=== PATIENT | female | born 1980 | race Hispanic/Latino ===

== ENCOUNTER 2018-11-29 08:23 | Day surgery (SDC) | payer BC ==
[2018-11-26 09:45] LABS: Absolute Monocytes 0.4 K/uL (0.1-1.3); Absolute Neutrophil 4.1 K/uL (1.8-8.0); Basophils % 0.6 % (0-1.3); Eosinophils % 2.2 % (0-4.4); Hematocrit 38.6 % (36.0-45.0); Lymphocytes % 18.4 % (15.3-44.8); MPV 8.2 fL (7.6-11.3); RBC Red Blood Cell Count 4.26 M/uL (3.86-4.86)
[2018-11-26 09:55] LABS: BUN Blood Urea Nitrogen 11 mg/dL (7-18); Bicarbonate 26 mmol/L (21-32); Glucose Level 94 mg/dL (74-106); Potassium 3.9 mmol/L (3.5-5.1); Sodium Level 139 mmol/L (136-145)
--- NOTE | 2018-11-26 10:09 | RAD REPORT ---
EXAM DESCRIPTION: RAD - Chest Single View - 11/26/2018 9:57 am CLINICAL HISTORY: preop Chest pain. COMPARISON: Abdomen 1 View (KUB) dated 06/05/2018 FINDINGS: Portable technique limits examination quality. The lungs are grossly clear. The heart is normal in size. No displaced fractures. IMPRESSION: No acute intrathoracic process suspected.
--- NOTE | 2018-11-26 13:42 | EKG ---
Test Date: 2018-11-26 Test Time: 09:40:39 Contract Agent: SHADY MEASUREMENT RESULTS: Intervals: Rate: 64 CO: 124 QRSD: 80 QT: 386 QTc: 398 [place]: P: 68 CO: 124 QRS: 70 T: 59 INTERPRETIVE STATEMENTS: Normal sinus rhythm Normal ECG No previous ECG available for comparison Electronically Signed On 11-26-18 13:38:41 POSTPARTUM RN by Bryan Jones
--- OUTSIDE RECORDS SUMMARY | 2018-11-29 08:32 | XMS REPORT ---
:1980 Author Organization e[employer] Care Team Providers Name Role Phone Thania Dietz Provider Role Unavailable Allergies No Known Allergies Problems Problem Type Condition Code Onset Dates Condition Status Problem History of ovarian cyst Z87.42 Active Problem Unspecified abdominal pain R10.9 Active Problem Other chronic pain G89.29 Active Problem Microscopic hematuria R31.29 Active Problem Irritable bowel K58.9 Active Medications No Known Medications Results No Known Results Summary Purpose eClinicalWorks Submission
--- OUTSIDE RECORDS SUMMARY | 2018-11-29 08:32 | XMS REPORT ---
:1980 Author Organization [employer] Care Team Providers Name Role Phone Vogt, Na Provider Role Unavailable Allergies, Adverse Reactions, Alerts Substance Reaction Event Type N.K.D.A. Info Not Available Non Drug Allergy Problems Problem Type Condition Code Onset Dates Condition Status Problem Microscopic hematuria R31.29 Active Problem Irritable bowel K58.9 Active Assessment Fibromyalgia M79.7 Active Assessment Gastroesophageal reflux disease K21.9 Active without esophagitis Assessment Dysfunctional gallbladder K82.8 Active Assessment Abdominal pain, right lateral R10.9 Active Problem Gastroesophageal reflux disease K21.9 Active without esophagitis Problem Paresthesia of skin R20.2 Active Problem Fibromyalgia M79.7 Active Problem Other chronic pain G89.29 Active Problem History of ovarian cyst Z87.42 Active Problem Pain in thoracic spine M54.6 Active Problem Unspecified abdominal pain R10.9 Active Medications Medication Code Code Instructions Start End Status Dosage System Date Date Dexilant [facility] 96616503068 30 MG Orally Oct 02, Active 1 capsule Once a day 2018 [facility] [address] - Orally Active not defined Fluconazole ND 17983994804 150 MG Orally May 23, Active 1 tablet one tab a week 2018 today and may repeat one tab in 1 week if no improvement Tamsulosin HCl ND 27910707416 0.4 MG Orally Active 1 capsule Once a day Results No Known Results Summary Purpose eClinicalWorks Submission
--- OUTSIDE RECORDS SUMMARY | 2018-11-29 08:32 | XMS REPORT ---
:1980 Author Organization [employer]Works Care Team Providers Name Role Phone Thania Dietz Provider Role Unavailable Allergies, Adverse Reactions, Alerts Substance Reaction Event Type N.K.D.A. Info Not Available Non Drug Allergy Problems Problem Type Condition Code Onset Dates Condition Status Assessment Flank pain R10.9 Active Problem History of ovarian cyst Z87.42 Active Problem Unspecified abdominal pain R10.9 Active Problem Other chronic pain G89.29 Active Assessment Microscopic hematuria R31.29 Active Problem Microscopic hematuria R31.29 Active Problem Irritable bowel K58.9 Active Medications Medication Code Code Instructions Start End Status Dosage System Date Date Tamsulosin HCl ND 29526094149 0.4 MG Orally Jun 01, Jul 01, Active 1 capsule Once a day 2017 2018 [facility] [address]42[address] - Orally Active not defined Fluconazole ND 11028316051 150 MG Orally May 23, Active 1 tablet one tab a week 2018 today and may repeat one tab in 1 week if no improvement Results Name Result Date Reference Range Unit Abnormality Flag URINALYSIS AUTO W/O SCOPE (09833) ----NIT neg [id number] ----URO 0.2 20180601 ----PROTEIN neg 20180601 ----pH 7.0 20180601 ----BLO 1+ 20180601 ----GLUCOSE neg [id number] ----AJAY neg [id number] ----BILIRUBIN neg [id number] ----KETONES neg [id number] ----SPECIFIC GRAVITY 1.025 20180601 PVR ----PVR 31 [id number] Summary Purpose eClinicalWorks Submission
--- OUTSIDE RECORDS SUMMARY | 2018-11-29 08:32 | XMS REPORT ---
:1980 Author Organization [facility] Address [address] [place] [address] [address] Care Team Providers Name Role Phone Unavailable Unavailable Unavailable Payers Payer Name Policy Type Policy Number Effective Date Expiration Date Problems This patient has no known problems. Allergies, Adverse Reactions, Alerts Allergy Allergy Status Severity Reaction(s) Onset Inactive Treating Comments Name Type Date Date Clinician No Known DA Active U 2010-09 Allergies -25 00:00:0 0 Medications This patient has no known medications.
--- OUTSIDE RECORDS SUMMARY | 2018-11-29 08:32 | XMS REPORT ---
:1980 Author Organization [employer]Works Care Team Providers Name Role Phone Vogt, Na Provider Role Unavailable Allergies, Adverse Reactions, Alerts Substance Reaction Event Type N.K.D.A. Info Not Available Non Drug Allergy Problems Problem Type Condition Code Onset Dates Condition Status Assessment History of ovarian cyst Z87.42 Active Assessment Unspecified abdominal pain R10.9 Active Assessment Microscopic hematuria R31.29 Active Assessment Irritable bowel K58.9 Active Assessment Vaginal yeast infection B37.3 Active Problem History of ovarian cyst Z87.42 Active Problem Unspecified abdominal pain R10.9 Active Problem Other chronic pain G89.29 Active Assessment Other chronic pain G89.29 Active Problem Microscopic hematuria R31.29 Active Problem Irritable bowel K58.9 Active Medications Medication Code Code Instructions Start End Status Dosage System Date Date Fluconazole [facility] 37278137316 150 MG Orally May 23, Active 1 tablet today one tab a week 2018 and may repeat one tab in 1 week if no improvement [facility] [address] - Orally Active not defined Results Name Result Date Reference Range Unit Abnormality Flag COMPREHENSIVE METABOLIC PANEL(CMP) ----ALBUMIN/GLOBULI 1.7 20180522 1.0-2.5 (calc) N N RATIO ----GLOBULIN 2.5 20180522 1.9-3.7 g/dL N (calc) ----ALKALINE 58 20180522 33-115 U/L N PHOSPHATASE ----BILIRUBIN, 0.6 20180522 0.2-1.2 mg/dL N TOTAL ----CHLORIDE 105 20180522 98-110 mmol/L N ----ALT 11 20180522 6-29 U/L N ----POTASSIUM 4.3 20180522 3.5-5.3 mmol/L N ----AST 13 20180522 10-30 U/L N ----SODIUM 140 20180522 135-146 mmol/L N ----BUN/CREATININE NOT APPLICABLE 20180522 6-22 (calc) RATIO ----eGFR 135 20180522 > OR=60 mL/min/1.[address] ----CALCIUM 9.1 20180522 8.6-10.2 mg/dL N ----CARBON DIOXIDE 27 20180522 20-32 mmol/L N ----ALBUMIN 4.3 20180522 3.6-5.1 g/dL N ----PROTEIN, TOTAL 6.8 20180522 6.1-8.1 g/dL N ----GLUCOSE 90 20180522 65-99 mg/dL N ----UREA NITROGEN 9 20180522 7-25 mg/dL N (BUN) ----CREATININE 0.57 20180522 0.50-1.10 mg/dL N ----eGFR NON-AFR. 117 20180522 > OR=60 mL/min/1.7 [address] [place] [address] CBC (H/H, RBC, INDICES, WBC, PLT) ----MCHC 34.2 20180522 32.0-36.0 g/dL N ----MCH 30.9 [id number] 27.0-33.0 pg N ----PLATELET COUNT 278 20180522 140-400 Thousand/u N L ----MPV 10.1 [id number] 7.5-12.5 fL N ----RDW 12.3 20180522 11.0-15.0 % N ----HEMATOCRIT 38.9 20180522 35.0-45.0 % N ----MCV 90.5 20180522 80.0-100.0 fL N ----RED BLOOD CELL 4.30 30457411 3.80-5.10 Million/uL N COUNT ----HEMOGLOBIN 13.3 27699650 11.7-15.5 g/dL N ----WHITE BLOOD 6.6 92498353 3.8-10.8 Thousand/u N CELL COUNT L Summary Purpose eClinicalWorks Submission
--- OUTSIDE RECORDS SUMMARY | 2018-11-29 08:32 | XMS REPORT ---
[...] Status Dosage System Date Date Tamsulosin HCl [facility] 56514954158 0.4 MG Orally Active 1 capsule Once a day [facility] [address] - Orally Active not defined Fluconazole [facility] 08960584391 150 MG Orally May 23, Active 1 tablet one tab a week 2018 today and may repeat one tab in 1 week if no improvement Results No Known Results Summary Purpose eClinicalWorks Submission
--- OUTSIDE RECORDS SUMMARY | 2018-11-29 08:32 | XMS REPORT ---
:1980 Author Organization eClinicalWorks Care Team Providers Name Role Phone Vogt, Na Provider Role Unavailable Allergies, Adverse Reactions, Alerts Substance Reaction Event Type N.K.D.A. Info Not Available Non Drug Allergy Problems Problem Type Condition Code Onset Dates Condition Status Assessment Other chronic pain G89.29 Active Assessment Arthralgia, unspecified joint M25.50 Active Problem Paresthesia of skin R20.2 Active Problem Microscopic hematuria R31.29 Active Problem Pain in thoracic spine M54.6 Active Problem Other chronic pain G89.29 Active Problem Irritable bowel K58.9 Active Problem History of ovarian cyst Z87.42 Active Problem Unspecified abdominal pain R10.9 Active Assessment Irritable bowel K58.9 Active Assessment Dermatitis L30.9 Active Assessment Anesthesia of skin R20.0 Active Assessment Influenza vaccination administered Z23 Active at current visit Assessment Paresthesia of skin R20.2 Active Assessment Low back pain M54.5 Active Assessment Pain in thoracic spine M54.6 Active Medications Medication Code Code Instructions Start End Status Dosage System Date Date Fluocinonide ND 81955858121 0.05 % Jul 04Jun Active as directed Externally 2017 24, twice a day 2017 Tamsulosin HCl ND 38201259703 0.4 MG Orally Active 1 capsule Once a day Fluconazole ND 22237654510 150 MG Orally May 23, Active 1 tablet one tab a week 2018 today and may repeat one tab in 1 week if no improvement [facility] [address] - Orally Active not defined Results No Known Results Immunizations Vaccine Administration Date Afluria Jul 02, 2018 Summary Purpose eClinicalWorks Submission
--- OUTSIDE RECORDS SUMMARY | 2018-11-29 08:32 | XMS REPORT ---
:1980 Author Organization eClinicalWorks Care Team Providers Name Role Phone Vogt, Na Provider Role Unavailable Allergies No Known Allergies [...]
--- OUTSIDE RECORDS SUMMARY | 2018-11-29 08:32 | XMS REPORT ---
:1980 Author Organization eClinicalWorks Care Team Providers Name Role Phone Vogt, Na Provider Role Unavailable Allergies No Known Allergies Problems Problem Type Condition Code Onset Dates Condition Status Problem History of ovarian cyst Z87.42 Active Problem Unspecified abdominal pain R10.9 Active Problem Other chronic pain G89.29 Active Assessment Vaginal yeast infection B37.3 Active Problem Microscopic hematuria R31.29 Active Problem Irritable bowel K58.9 Active Medications Medication Code Code Instructions Start End Status Dosage System Date Date Fluconazole [facility] 56940693904 150 MG Orally May 23, Active 1 tablet today one tab a week 2017 and may repeat one tab in 1 week if no improvement Results No Known Results Summary Purpose eClinicalWorks Submission
--- OUTSIDE RECORDS SUMMARY | 2018-11-29 08:33 | XMS REPORT ---
:1980 Author Organization eClinicalWorks Care Team Providers Name Role Phone Feliz Carroll Provider Role Unavailable Allergies, Adverse Reactions, Alerts Substance Reaction Event Type N.K.D.A. Info Not Available Non Drug Allergy Problems Problem Type Condition Code Onset Dates Condition Status Problem Microscopic hematuria R31.29 Active Problem Irritable bowel K58.9 Active Assessment Calculus of gallbladder without K80.20 Active cholecystitis without obstruction Problem Gastroesophageal reflux disease K21.9 Active without esophagitis Problem Paresthesia of skin R20.2 Active Problem Fibromyalgia M79.7 Active Problem Other chronic pain G89.29 Active Problem History of ovarian cyst Z87.42 Active Problem Pain in thoracic spine M54.6 Active Problem Unspecified abdominal pain R10.9 Active Medications Medication Code Code Instructions Start End Status Dosage System Date Date [facility] [address] - Orally Active not defined Tamsulosin HCl ND 83425304829 0.4 MG Orally Active 1 capsule Once a day Fluconazole ND 21470910757 150 MG Orally May 23, Active 1 tablet one tab a week 2018 today and may repeat one tab in 1 week if no improvement Dexilant ND 56811195671 30 MG Orally Oct 02, Active 1 capsule Once a day 2019 Results No Known Results Summary Purpose eClinicalWorks Submission
--- OUTSIDE RECORDS SUMMARY | 2018-11-29 08:33 | XMS REPORT ---
:1980 Author Organization eClinicalWorks Care Team Providers Name Role Phone Feliz Carroll Provider Role Unavailable Allergies No Known Allergies Problems Problem Type Condition Code Onset Dates Condition Status Problem Microscopic hematuria R31.29 Active Problem Irritable bowel K58.9 Active Problem Gastroesophageal reflux disease K21.9 Active without esophagitis Problem Paresthesia of skin R20.2 Active Problem Fibromyalgia M79.7 Active Problem Other chronic pain G89.29 Active Problem History of ovarian cyst Z87.42 Active Problem Pain in thoracic spine M54.6 Active Problem Unspecified abdominal pain R10.9 Active Medications No Known Medications Results No Known Results Summary Purpose eClinicalWorks Submission
--- OUTSIDE RECORDS SUMMARY | 2018-11-29 08:33 | XMS REPORT ---
:1980 Author Organization eClinicalWorks Care Team Providers Name Role Phone Feliz Carroll Provider Role Unavailable Allergies, Adverse Reactions, Alerts Substance Reaction Event Type N.K.D.A. Info Not Available Non Drug Allergy Problems Problem Type Condition Code Onset Dates Condition Status Problem Microscopic hematuria R31.29 Active Problem Irritable bowel K58.9 Active Assessment Biliary dyskinesia K82.8 Active Problem Gastroesophageal reflux disease K21.9 Active without esophagitis Problem Paresthesia of skin R20.2 Active Problem Fibromyalgia M79.7 Active Problem Other chronic pain G89.29 Active Problem History of ovarian cyst Z87.42 Active Problem Pain in thoracic spine M54.6 Active Problem Unspecified abdominal pain R10.9 Active Medications Medication Code Code Instructions Start End Status Dosage System Date Date [facility] [address] - Orally Active not defined Fluconazole ND 03127063216 150 MG Orally May 23, Active 1 tablet one tab a week 2018 today and may repeat one tab in 1 week if no improvement Tamsulosin HCl [facility] 47977132078 0.4 MG Orally Active 1 capsule Once a day Dexilant [facility] 63504340058 30 MG Orally Oct 02, Active 1 capsule Once a day 2019 Results No Known Results Summary Purpose eClinicalWorks Submission
[2018-11-29 08:51] LABS: Specific Gravity >= 1.030 (1.005-1.030)
[2018-11-29] MEDS ORDERED: Ringers Lactate 1,000 ML IV ONE (08:53)
[2018-11-29] MEDS ORDERED: DEXAMETHASONE 4 MG/ML VIAL ONE (09:21)
[2018-11-29] MEDS ORDERED: LIDOCAINE 2% MPF 5 ML VIAL ONE (09:21)
[2018-11-29] MEDS ORDERED: PROPOFOL 200 MG/20 ML VIAL IV ONE (09:21)
[2018-11-29] MEDS ORDERED: FENTANYL CITR 100 MCG/2 ML ONE (09:21)
[2018-11-29] MEDS ORDERED: ROCURONIUM 50 MG/5 ML VIAL IV ONE (09:21)
[2018-11-29] MEDS ORDERED: MIDAZOLAM HCL 2 MG/2 ML INJ ONE (09:21)
[2018-11-29] MEDS ORDERED: BUPIVACAINE 0.25% PF 10 ML VIAL ONE (09:47)
[2018-11-29] MEDS: CEFOXITIN/SWI 1gm 1 GM/10 ML SYR ONE ×2 (09:51→09:55)
[2018-11-29] MEDS ORDERED: KETOROLAC 30 MG/ML INJ ONE (10:14)
--- NOTE | 2018-11-29 10:30 | P.OP ---
Wax Engraver: VIRA HOLLINGSWORTH Preoperative diagnosis: Biliary Dyskinesia / Chronic Cholecystitis Postoperative diagnosis: Biliary Dyskinesia / Chronic Cholecystitis Primary procedure: Laparoscopic Cholecystectomy Anesthesia: GETA + Local Estimated blood loss: <10cc Specimen: Gallbladder Findings: Floppy, Bluish Gallbladder Complications: None Transferred to: Recovery Room Condition: Good
[2018-11-29] MEDS ORDERED: GLYCOPYRROLATE 0.2 MG/ML SYR ONE (10:42)
[2018-11-29] MEDS ORDERED: NEOSTIGMINE 1 MG/ML -10 ML VIAL ONE (10:42)
[2018-11-29] MEDS: HYDROMORPHONE HCL 2 MG/ML inj ONE ×2 (11:04→11:09)
[2018-11-29] MEDS ORDERED: HYDROCODONE/APAP 5/325 MG TAB ONE (12:09)
--- NOTE | 2018-11-29 22:51 | OP ---
Date of Procedure: 11/29/2018 Surgeon: Feliz Carroll MD, Safety And Health Manager: Merle Quarles. Preoperative Diagnosis: Biliary dyskinesia/chronic cholecystitis. Postoperative Diagnosis: Biliary dyskinesia/chronic cholecystitis. Procedure Performed: Laparoscopic cholecystectomy. Anesthesia: General endotracheal plus local with 0.25% Marcaine. Estimated Blood Loss: Less than 10 cc. Specimen: Gallbladder. Findings: Floppy bluish gallbladder. Complications: None. Disposition: Transferred to recovery room in good condition. Procedure In Detail: After informed consent was obtained, the patient was brought to the operating room, prepped and draped in the usual sterile fashion. After adequate anesthesia was achieved, infraumbilical area was anesthetized with 0.25% Marcaine, sharply incised. A 5 mm trocar was introduced in the abdomen without evidence of complication. Insufflation was obtained to 15 mmHg at this time. There was no injury to vital structures appreciated upon entry into the abdomen. Additional trocar site was chosen in the right upper quadrant and in the epigastrium. Both of these were similarly anesthetized, sharply incised. 5 mm trocars were introduced in the abdomen without evidence of complication under direct visualization. The umbilical trocar was then upsized to a 12 mm under direct visualization without evidence of complication. The patient was then positioned in a head up right-side up position. Ratcheted grasper was used to grasp the patient's gallbladder. There were omental attachments to the anterior surface. These were taken down using electrocautery and peeled down to the confluence at the Christianne pouch of the gallbladder. Dissection continued down to expose the cystic duct and cystic artery. The critical view of safety was obtained at this time quite easily. These 2 structures were skeletonized and identified as the only 2 structures entering the gallbladder identified as the cystic duct and the cystic artery. Once these were completely skeletonized, the Endo clips were then brought in, and the cystic duct and cystic artery were both doubly clipped on the proximal side and singly clipped on the distal side. The Endo Parviz was then brought in and these structures were ligated. The gallbladder was removed from the hepatic fossa using electrocautery with minimal spillage of bile. The gallbladder was then placed in an EndoCatch bag and removed from the umbilical trocar and sent off for pathologic examination. The abdomen was then completely copiously irrigated until completely clear. No additional bile was appreciated at the end of the procedure. The hepatic fossa required minimal fulguration to achieve good hemostasis which was appreciated by the end of the procedure. The area was copiously irrigated multiple times until completely clear and inspected for good hemostasis which was achieved. All clips were found to be in good anatomic position at the end of the procedure as well. The patient was then positioned in neutral position. The umbilical trocar was removed. The umbilical trocar site was closed using a Torin-Shilo suture passer with 0 Vicryl in interrupted fashion with good approximation of the tissues. The abdomen was then desufflated under direct visualization without evidence of complication. All trocars were then removed. All skin incisions were copiously irrigated and closed with a 4-0 Monocryl in a running fashion. Dermabond was placed over the top. The patient tolerated the procedure well without evidence of complication and transferred back in a good condition. All counts were correct at the end of the case. VISHAL/HOMER Voice ID: [id number] Report ID: [id number]
== END 2018-11-29 14:05 | disposition home or self-care (01) ==
LOC: OR 08:23
PROVIDERS: ATTEND Surgery
PROC: 0FT44ZZ Resection of Gallbladder, Percutaneous Endoscopic Approach (ICD-10-PCS; principal; 2018-11-29 10:00)
DX: K81.1 Chronic cholecystitis (principal); K82.8 Other specified diseases of gallbladder; M79.7 Fibromyalgia
CPT/HCPCS: 36415; 71045; 80048; 81025; 84484; 85025; 88304; 93005; J1170; J2250; J2704; J2710; J3010